=== PATIENT | female | born 1985 | race Caucasian/White ===

== ENCOUNTER → 2019-02-02 | Outpatient (CLI) | payer BC ==
--- NOTE | 2019-02-02 13:58 | XR ---
Right ankle HISTORY: Pain 3 views of the right ankle There is an oval ossific density distal to the fibula measuring approximately 8 mm in cephalad to cau lazara dimension which is well-corticated and not felt likely to be acute. Alignment and bone mineraliza tion, joint spaces are maintained. No fracture or dislocation. There is mild soft tissue swelling. IMPRESSION: No acute bone abnormality. Ankle MRI may be of benefit.
== END | disposition home or self-care (01) ==
LOC: RADXRMAIN 12:06
PROVIDERS: ATTEND Physician Assistant Medical
DX: M25.571 Pain in right ankle and joints of right foot (principal)

== ENCOUNTER → 2023-02-24 | Outpatient (CLI) | payer BC ==
[2023-02-24 17:08] LABS: Basophils # (A) 0.03 X 10*3/uL (0.00-0.10); Basophils % (A) 0.5 %; Eosinophils # (A) 0.12 X 10*3/uL (0.04-0.35); Eosinophils % (A) 2.2 %; HCT 44.8 % (37.2-46.3); HGB 14.7 d/dL (12.0-15.0); Lymphocytes % (A) 41.4 %; MCH 31.7 pg (27.0-32.0); MCHC 32.8 d/dL (32.0-37.0); MCV 96.6 FL (80.0-97.0); Mean Platelet Volume 9.7 FL (9.5-12.2); Monocytes # (A) 0.32 X 10*3/uL (0.20-1.00); Monocytes % (A) 5.8 %; NRBC Per 100 WBC 0 X 10*3/uL (0.00-0.01); Neutrophils # (A) 2.76 X 10*3/uL (1.80-7.70); Neutrophils % (A) 49.7 %; Platelet Count 239 X 10*3/uL (140-440); RBC 4.64 X 10*6/uL (4.10-5.20); WBC 5.55 X 10*3/uL (4.50-10.00)
[2023-02-24 17:34] LABS: % Iron Saturation 40.92 (12.00-45.00); Chol/HDL Ratio 3.18 Ratio; Iron 142 UG/DL (50-170); LDL Cholesterol,Calculated 138.9 mg/dL (0.0-131.0); Total Iron Binding Capacity 347 UG/DL (228-460)
[2023-02-24 17:35] LABS: ALT 21 U/L (8-44); AST 19 U/L (13-35); Albumin 4.1 d/dL (3.8-4.9); Albumin/Globulin Ratio 2.28 Ratio (1.60-3.17); Alkaline Phosphatase 57 U/L (41-126); Blood Urea Nitrogen 16.8 mg/dL (9.0-27.0); Calcium 8.8 mg/dL (8.7-10.3); Carbon Dioxide 28.4 mmol/L (21.6-31.8); Chloride 104 mmol/L (96-109); Ferritin 66.7 ng/mL (10.0-291.0); Globulin 1.8 d/dL (1.6-3.3); Glucose 82 mg/dL (70-110); Potassium 4.7 mmol/L (3.5-5.5); Sodium 139 mmol/L (135-145); Total Bilirubin 0.4 mg/dL (0.3-1.2); Total Protein 5.9 d/dL (6.2-8.2)
== END | disposition home or self-care (01) ==
LOC: LABWHC1 08:17
PROVIDERS: ATTEND Physician Assistant Medical
DX: Z13.1 Encounter for screening for diabetes mellitus (principal); E78.5 Hyperlipidemia, unspecified; R53.83 Other fatigue
CPT/HCPCS: 36415; 80053; 80061; 82306; 82728; 83036; 83540; 83550; 84443; 85025

== ENCOUNTER → 2024-05-23 | Outpatient (CLI) | payer BC ==
--- NOTE | 2024-05-23 11:22 | CA ---
Exercise Stress Test Report Name: Gretta Treadwell Exam Date: 05/23/2024 10:39 Exam Location: [place] [facility] Ht (in): 65 Wt (lb): 157 BSA: 1.78 Ordering Phys: Jimmy Freedman MD Referring Phys: Lucrecia Randall [facility] Technologist: Chai Plasencia Age: 38 Gender: F : 1985 Procedure CPT: Indications: Z91.89 OTH PERSONAL RISK FACTORS, ICD-10 Codes: Patient History: Medications: FLUOXITINE Meds past 24 hrs: Pretest Chest Pain: STRESS TEST Ramon Protocol Exercise Duration (min:sec): 11:[address] Depressions (mm): Angina Score: Edwards Score: Resting HR (bpm): 76 Peak HR (bpm): 178 Resting BP (mmHg): 131 / 88 Peak BP (mmHg): 184 / 69 MPHR: 180 Target HR: 153 % MPHR: 99 METS: 12.1 Total Dose: Peak Dose: Atropine: Double Product: 25784 BP Response: Stress Termination: Reached target heart rate Stress Symptoms: No chest pain or symptoms Stress Summary: ECG ANALYSIS Resting ECG: Normal sinus rhythm normal axis normal intervals Stress ECG: Patient exercised on Ramon protocol for 12 minutes achieving 13 mets 85% of predicted maximal heart rate without chest pain. At peak exercise there was 0.[address] segment depression noted in the inferolateral leads CONCLUSIONS Excellent exercise tolerance Nondiagnostic EKG changes and troponin Dr. Erik Zelaya MD (Electronically Signed) Final Date: 23 May 2024 11:22
--- NOTE | 2024-05-23 12:57 | US ---
EXAMINATION TYPE: US carotid duplex BILAT DATE OF EXAM: 05/23/2024 COMPARISON: NONE CLINICAL INDICATION: Female, 38 years old with history of [id number] OTHER SPECIFIED PERSONA RISK FACTORS; high cholesterol only, no symptoms, no h/o stroke Additional History: .... TECHNIQUE: Grayscale, color Doppler and spectral Doppler evaluation of the bilateral carotid systems and vertebral arteries. Indirect Doppler criteria was utilized. 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 Spectral waveforms are within normal limits. IMPRESSION: No evidence of hemodynamically significant stenosis. Right: Left: Criteria for Assigning % of Stenosis / Diameter reduction (Estimation based on the indirect measurements of the internal carotid artery velocities (ICA PSV). 1. Normal (no stenosis)=ICA PSV < 125 cm/s: ratio < 2.0: ICA EDV<40 cm/s. 2. Less than 50% stenosis=ICA PSV < 125 cm/s: ratio < 2.0: ICA EDV<40 cm/s. 3. 50 to 69% stenosis=ICA PSV of 125 to 230 cm/s: ration 2.0 ? 4.0: ICA EDV 40-100 cm/s. 4. Greater than 70% stenosis to near occlusion= ICA PSV > 230 cm/s: ratio > 4.0: ICA EDV > 100 cm/s. 5. Near occlusion= ICA PSV velocities may be low or undetectable: variable ratio and ICA EDV. 6. Total occlusion=unable to detect flow. [facility], , 05/23/2024 12:55 PM
== END | disposition home or self-care (01) ==
LOC: RADNMMAIN 10:13
PROVIDERS: ATTEND Family Medicine
DX: E78.00 Pure hypercholesterolemia, unspecified (principal); Z91.89 Other specified personal risk factors, not elsewhere classified
CPT/HCPCS: 93017; 93880